=== PATIENT | female | born 1980 | race Caucasian/White ===

== ENCOUNTER 2017-11-10 07:34 | Emergency (ER) | payer OTHER ==
[2017-11-10] MEDS ORDERED: ONDANSETRON 4 MG/2 ML VIAL IVP ONE (07:52)
[2017-11-10] MEDS ORDERED: KETOROLAC 30 MG/1 ML SDV IVP ONE (07:52)
[2017-11-10] MEDS ORDERED: METOCLOPRAMIDE 10 MG/2 ML VIAL IVP ONE (07:52)
[2017-11-10] MEDS ORDERED: NS 1,000 ML IV ONE (07:52)
[2017-11-10] MEDS ORDERED: DEXAMETHASONE 10 MG/ML VIAL IVP ONE (07:52)
--- NOTE | 2017-11-10 07:57 | EDPHY ---
H & P Time Seen by Provider: 11/10/17 07:49 HPI/ROS: HPI Migraine headache. 37-year-old female by private vehicle with . This patient has a history of migraine headaches. She reports that yesterday evening she developed a gradual onset migraine headache which she describes as being behind her right eye and radiating to the back of her head and her upper neck on the right side. She reports this headache is similar to previous migraine headaches she has had. She has had associated nausea and vomiting. She attempted to take Maxalt and Flexeril for the migraine but vomited these medications up. She has not had a fever. No changes in vision. ROS: Constitutional: No fever, no chills. No weakness. Eyes: No discharge. No changes in vision. ENT: No sore throat. No nasal congestion or rhinorrhea. Respiratory: No cough. No shortness of breath. Cardiac: No chest pain, no palpitations. Gastrointestinal: No abdominal pain, as above, no diarrhea. Musculoskeletal: No back pain. As above. No myalgias or arthralgias. Skin: No rashes. Neurological: As above. No focal weakness or altered sensation. Past medical history: Migraine headaches, Lyme disease, asthma. Social history: Nonsmoker. No alcohol. Here with her . Physical Exam: General Appearance: Alert, she appears uncomfortable but not in distress. This patient is responding to questions appropriately and in full sentences. This patient appears well-hydrated and well-nourished. Eyes: Pupils equal and round no pallor or injection. No lid edema, erythema or injection. No significant photophobia. No nystagmus. Respiratory: There are no retractions, lungs are clear to auscultation with good air movement bilaterally. Cardiovascular: Regular rate and rhythm. No murmur. Gastrointestinal: Abdomen is soft and nontender, no masses, bowel sounds normal. No focal tenderness at McBurney's point. No Grace sign. Neurological: Motor sensory function is grossly intact. Cranial nerves are normal. Gait is normal. Skin: Warm and dry, no rashes. Musculoskeletal: Neck is supple and nontender. No pain on flexion of her neck. Extremities are symmetrical. All joints range without pain or impingement. Psychiatric: No agitation. No depression. Database: EKG: Imaging: Procedures: Emergency department course: Vital signs reviewed. She is moderately hypertensive. Vital signs otherwise normal. Medication allergies reviewed. 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 No contraindications to NSAIDs. No history of renal dysfunction or peptic ulcer disease. She was started on IV normal saline with 1 L to be given over the next hour. She was initially given 4 mg of IV Zofran, 10 mg of IV Reglan, 25 mg of IV Benadryl and 30 mg of IV Toradol. 9:00 a.m., patient re-evaluated. Resting comfortably at this time. She reports feeling much better. She reports resolution of her headache. Repeat neurologic Assessment is nonfocal. She feels comfortable going home with her at this time and I feel she is safe for discharge. Follow-up and return to emergency department precautions reviewed with her. All of her questions were answered. She was discharged in good condition. Differential Diagnosis: The differential diagnosis on this patient includes but is not limited to migraine headache. Subarachnoid hemorrhage, meningitis, encephalitis, traumatic brain injury, cavernous sinus thrombosis, sagittal sinus thrombosis, temporal arteritis unlikely. This represents a partial list of diagnoses considered. These considerations are based on history, physical exam, past history, reassessment and diagnostic testing. Smoking Status: Never smoked Constitutional: Initial Vital Signs Temperature (C) 36.6 C 11/10/17 07:41 Heart Rate 91 11/10/17 07:41 Respiratory Rate 18 11/10/17 07:41 Blood Pressure 145/96 H 11/10/17 07:41 O2 Sat (%) 99 11/10/17 07:41 O2 Delivery Mode Room Air Allergies/Adverse Reactions: Penicillins Allergy (Verified 11/10/17 07:44) Home Medications: Medication Instructions Recorded Aspirin 11/10/17 Maxalt 11/10/17 Vyvanse 11/10/17 Medical Decision Making - Data Points Medications Given: Discontinued Medications Dexamethasone (Decadron Injection) 10 mg IVP EDNOW ONE Stop: 11/10/17 07:53 Last Admin: 11/10/17 08:10 Dose: Not Given Diphenhydramine HCl (Benadryl Injection) 25 mg IVP EDNOW ONE Stop: 11/10/17 07:53 Last Admin: 11/10/17 08:08 Dose: 25 mg Sodium Chloride (Ns) 1,000 mls @ 0 mls/hr IV ONCE ONE; Wide Open PRN Reason: Protocol Stop: 11/10/17 07:53 Last Admin: 11/10/17 08:09 Dose: 1,000 mls Ketorolac Tromethamine (Toradol) 30 mg IVP EDNOW ONE Stop: 11/10/17 07:53 Last Admin: 11/10/17 08:05 Dose: 30 mg Metoclopramide HCl (Reglan Injection) 10 mg IVP EDNOW ONE Stop: 11/10/17 07:53 Last Admin: 11/10/17 08:04 Dose: 10 mg Ondansetron HCl (Zofran) 4 mg IVP EDNOW ONE Stop: 11/10/17 07:53 Last Admin: 11/10/17 08:04 Dose: 4 mg Departure - Departure Disposition: Home, Routine, Self-Care Clinical Impression: Headache Condition: Good Instructions: Migraine Headache (ED) Additional Instructions: Read and follow provided instructions. Follow-up with your primary care physician or neurologist in 1-2 days for re- evaluation. Keep well hydrated. Get plenty of rest. Return to the emergency department for worsening headache, vomiting and inability to keep fluids down, neck pain, fever or other serious concerns. Referrals: Blake Mejias DO [Medical Doctor] - As per Instructions
[2017-11-10 09:15] VITALS: BP 114/78
== END 2017-11-10 09:10 | disposition home or self-care (01) ==
LOC: CED 07:34
DX: G43.909 Migraine, unspecified, not intractable, without status migrainosus (principal); E86.9 Volume depletion, unspecified; J45.909 Unspecified asthma, uncomplicated; Z79.82 Long term (current) use of aspirin
CPT/HCPCS: 96374; J1100; J1200; J1885; J2405; J2765